=== PATIENT | female | born 1995 | race Caucasian/White ===

== ENCOUNTER 2017-11-14 12:17 | Emergency (ER) | payer BC, OTHER ==
[~2017-11-14] VITALS: Ht 172.7 cm; Wt 107.8 kg
[2017-11-14 14:04] LABS: MICROSCOPIC NOT IND
[2017-11-14 14:21] LABS: BASOPHILS # (AUTO) 0.05 x10^3/uL (0-0.1); BASOPHILS % (AUTO) 0 % (0-1); EOSINOPHILS # (AUTO) 0.26 x10^3/uL (0-0.4); EOSINOPHILS % (AUTO) 2 % (1-7); LYMPHOCYTES # (AUTO) 2.37 x10^3/uL (1-3.4); LYMPHOCYTES % (AUTO) 18 % (22-44); MD NO; MEAN CORPUSCULAR HEMOGLOBIN 31.8 pg (27.0-34.8); MEAN CORPUSCULAR HGB CONC 34.8 g/dL (32.4-35.8); MEAN CORPUSCULAR VOLUME 91.2 fL (80-100); MEAN PLATELET VOLUME 8.2 fL (7.4-10.4); MONOCYTES # (AUTO) 0.74 x10^3/uL (0.2-0.8); MONOCYTES % (AUTO) 6 % (2-9); NEUTROPHILS # (AUTO) 9.73 x10^3/uL (1.8-6.8); NEUTROPHILS % (AUTO) 74 % (42-75); PLATELET COUNT 289 x10^3/uL (130-400); RED BLOOD COUNT 4.83 x10^6/uL (3.82-5.3); RED CELL DISTRIBUTION WIDTH 12.6 % (9.6-15.2)
[2017-11-14 14:28] LABS: ALBUMIN 3.5 g/dL (3.4-5.0); ANION GAP 12 mmol/L (5-15); CALCIUM 8.8 mg/dL (8.5-10.1); CHLORIDE 106 mmol/L (98-107); CREATININE 0.83 mg/dL (0.55-1.02)
[2017-11-14 15:42] VITALS: BP 100/62
== END 2017-11-14 16:53 | disposition home or self-care (01) ==
LOC: ED 16:20
DX: O26.891 Other specified pregnancy related conditions, first trimester (principal); R10.9 Unspecified abdominal pain; O00.90 Unspecified ectopic pregnancy without intrauterine pregnancy; Z3A.01 Less than 8 weeks gestation of pregnancy; Z32.01 Encounter for pregnancy test, result positive
CPT/HCPCS: 36415; 76801; 80048; 81003; 82040; 84702; 85025; 86901; 99285

== ENCOUNTER 2018-06-20 04:25 | Inpatient (IN) | payer BC, OTHER ==
[~2018-06-20] VITALS: Ht 172.7 cm; Wt 123.0 kg
[2018-06-20] MEDS ORDERED: OXYTOCIN 30U/ 0.9% NaCL 500ML 500 ML IV ONE (05:27)
[2018-06-20] MEDS ORDERED: D5%-LACTATED RINGERS 1,000 ML IV SCH (05:27)
[2018-06-20] MEDS ORDERED: FENTANYL PF 100 MCG/2ML IVPush PRN (05:30)
[2018-06-20] MEDS ORDERED: PENICILLIN GK 5,000,000 UNITS in DEXTROSE 5% 100 ML IVPB ONE (05:30)
[2018-06-20] MEDS ORDERED: ONDANSETRON 2MG/ML, 2ML IVPush PRN (05:30)
[2018-06-20] MEDS ORDERED: CALCIUM CARBONATE 500 MG TAB.CHEW PO PRN (05:30)
[2018-06-20] MEDS ORDERED: FENTANYL PF 100 MCG/2ML IV PRN (05:30)
[2018-06-20] MEDS ORDERED: OXYTOCIN 30U/ 0.9% NaCL 500ML 500 ML ONE (05:42)
[2018-06-20] MEDS ORDERED: LIDOCAINE/PF 1%, 30ML ONE (05:42)
[2018-06-20] MEDS ORDERED: MISOPROSTOL 200 MCG TABLET ONE (05:42)
[2018-06-20] MEDS ORDERED: NEWBORN KIT ONE (05:42)
[2018-06-20 06:28] LABS: BASOPHILS # (AUTO) 0.05 x10^3/uL (0-0.1); BASOPHILS % (AUTO) 0 % (0-1); EOSINOPHILS % (AUTO) 1 % (1-7); LYMPHOCYTES # (AUTO) 2.89 x10^3/uL (1-3.4); LYMPHOCYTES % (AUTO) 20 % (22-44); MD NO; MEAN CORPUSCULAR HEMOGLOBIN 31.7 pg (27.0-34.8); MEAN CORPUSCULAR HGB CONC 34.9 g/dL (32.4-35.8); MEAN CORPUSCULAR VOLUME 90.9 fL (80-100); MEAN PLATELET VOLUME 8.2 fL (7.4-10.4); MONOCYTES # (AUTO) 1.06 x10^3/uL (0.2-0.8); MONOCYTES % (AUTO) 7 % (2-9); NEUTROPHILS # (AUTO) 10.44 x10^3/uL (1.8-6.8); NEUTROPHILS % (AUTO) 71 % (42-75); PLATELET COUNT 232 x10^3/uL (130-400); RED BLOOD COUNT 4.31 x10^6/uL (3.82-5.3); RED CELL DISTRIBUTION WIDTH 13.8 % (9.6-15.2)
[2018-06-20] MEDS: LACTATED RINGERS 1,000 ML IV SCH ×3 (07:15→13:24)
[2018-06-20] MEDS ORDERED: BETAMETHASONE 6 MG/ML, 5ML IM ONE (07:23)
[2018-06-20] MEDS: BETAMETHASONE 6 MG/ML, 5ML IM SCH (07:25)
[2018-06-20] MEDS ORDERED: FENTANYL/BUPIV./NS/PF 250 ML EPIDCONT SCH (09:07)
[2018-06-20] MEDS ORDERED: FENTANYL PF 100 MCG/2ML ONE ×2 (11:20→13:16)
[2018-06-20] MEDS: PENICILLIN GK 2,500,000 UNITS in DEXTROSE 5% 100 ML IVPB SCH ×4 (11:52→23:10)
[2018-06-20] MEDS ORDERED: BUPIVACAINE 0.25% ONE (13:16)
[2018-06-20] MEDS ORDERED: FENTANYL/BUPIV./NS/PF 250 ML EPIDCONT ONE (13:38)
[2018-06-20] MEDS ORDERED: CALCIUM CARBONATE 500 MG TAB.CHEW ONE (19:15)
[2018-06-21] MEDS ORDERED: OXYTOCIN 30U/ 0.9% NaCL 500ML 500 ML ONE (03:15)
[2018-06-21] MEDS ORDERED: IBUPROFEN 600 MG TABLET ONE (03:30)
[2018-06-21] MEDS: OXYTOCIN 30U/ 0.9% NaCL 500ML 500 ML IV SCH ×2 (04:45→14:45)
[2018-06-21 05:00] VITALS: BP 97/60
[2018-06-21] MEDS ORDERED: DIPH,PERTUSS(ACELL),TET VAC/PF NC IM-VACC PRN (05:00)
[2018-06-21] MEDS ORDERED: METOCLOPRAMIDE 5 MG/ML, 2ML IV PRN (05:00)
[2018-06-21] MEDS ORDERED: DOCUSATE 100 MG CAPSULE PO PRN (05:00)
[2018-06-21] MEDS ORDERED: OXYcodone/APAP 5/325MG TABLET PO PRN (05:00)
[2018-06-21] MEDS ORDERED: METHYLERGONOVINE 0.2 MG/ML IM PRN (05:00)
[2018-06-21] MEDS ORDERED: MAGNESIUM HYDROXIDE 8%, 30ML UDC PO PRN (05:00)
[2018-06-21] MEDS ORDERED: ONDANSETRON 2MG/ML, 2ML IV PRN (05:00)
[2018-06-21] MEDS ORDERED: CALCIUM CARBONATE 500 MG TAB.CHEW PO PRN (05:00)
[2018-06-21] MEDS ORDERED: BISACODYL 10 MG SUPP PR PRN (05:00)
[2018-06-21] MEDS ORDERED: GLYCERIN ADULT SUPP PR PRN (05:00)
[2018-06-21] MEDS ORDERED: MISOPROSTOL 200 MCG TABLET PR PRN ×2 (05:00)
[2018-06-21] MEDS ORDERED: HYDROcodone/APAP 5/325 TABLET PO PRN (05:00)
[2018-06-21] MEDS: BETAMETHASONE 6 MG/ML, 5ML IM SCH (07:00)
[2018-06-21 07:40] VITALS: BP 96/60
[2018-06-21] MEDS: PRENATAL VIT/IRON/FA 1 EACH TABLET PO SCH (09:00)
[2018-06-21 10:52] LABS: MEAN CORPUSCULAR HEMOGLOBIN 30.9 pg (27.0-34.8); MEAN CORPUSCULAR HGB CONC 33.8 g/dL (32.4-35.8); MEAN CORPUSCULAR VOLUME 91.3 fL (80-100); MEAN PLATELET VOLUME 8.3 fL (7.4-10.4); PLATELET COUNT 225 x10^3/uL (130-400); RED BLOOD COUNT 3.56 x10^6/uL (3.82-5.3); RED CELL DISTRIBUTION WIDTH 13.9 % (9.6-15.2)
[2018-06-21 11:04] LABS: MD YES
[2018-06-21 11:06] LABS: BAND#(MANUAL) 1.64 x10^3/uL; BANDS%(MANUAL) 8 % (0-7); BASOS#(MANUAL) 0.21 x10^3/uL (0-0.1); BASOS% (MANUAL) 1 % (0-1); EOS#(MANUAL) 0.41 x10^3/uL (0.0-0.4); EOS% (MANUAL) 2 % (1-7); LYMPH#(MANUAL) 2.67 x10^3/uL (1-3.4); LYMPHS% (MANUAL) 13 % (22-44); MONOS#(MANUAL) 1.23 x10^3/uL (0.3-2.7); MONOS% (MANUAL) 6 % (2-9); SEG#(MANUAL) 14.35 x10^3/uL (1.8-6.8); SEGS% (MANUAL) 70 % (42-75)
[2018-06-21 11:07] LABS: HYPOCHROMIA 1+; POLYCHROMASIA 1+
[2018-06-21 11:08] LABS: <PLATELET ESTIMATE> ADEQUATE; <PLT MORPHOLOGY> NORMAL PLT MORPH
[2018-06-21 12:30] VITALS: BP 102/59
[2018-06-21] MEDS: IBUPROFEN 600 MG TABLET PO PRN (15:34)
[2018-06-21 16:30] VITALS: BP 106/69
[2018-06-21 20:00] VITALS: BP 112/70
[2018-06-22] VITALS: BP 108/68
[2018-06-22] MEDS: OXYTOCIN 30U/ 0.9% NaCL 500ML 500 ML IV SCH (00:45)
[2018-06-22 07:35] VITALS: BP 118/79
[2018-06-22] MEDS: IBUPROFEN 600 MG TABLET PO PRN ×2 (07:53→16:37)
[2018-06-22] MEDS: PRENATAL VIT/IRON/FA 1 EACH TABLET PO SCH ×2 (07:53→08:01)
[2018-06-22] MEDS ORDERED: IBUP100O32 PO (17:35)
[2018-06-22] MEDS ORDERED: IBUP-1222 PO ×2 (17:36→17:37)
== END 2018-06-22 19:29 | disposition home or self-care (01) | DRG 807 ==
LOC: LDOP 04:25 → LDIP 05:41 → 2NW 06-21 04:16
PROVIDERS: ADMIT Obstetrics & Gynecology Gynecology; ATTEND Obstetrics & Gynecology Gynecology
PROC: 10E0XZZ Delivery of Products of Conception, External Approach (ICD-10-PCS; principal; 2018-06-21)
PROC: 0UQMXZZ Repair Vulva, External Approach (ICD-10-PCS; 2018-06-21)
PROC: 0HQ9XZZ Repair Perineum Skin, External Approach (ICD-10-PCS; 2018-06-21)
PROC: 10H07YZ Insertion of Other Device into Products of Conception, Via Natural or Artificial Opening (ICD-10-PCS; 2018-06-21)
PROC: 3E033VJ Introduction of Other Hormone into Peripheral Vein, Percutaneous Approach (ICD-10-PCS; 2018-06-21)
PROC: 3E0R3BZ Introduction of Anesthetic Agent into Spinal Canal, Percutaneous Approach (ICD-10-PCS; 2018-06-21)
PROC: 00HU33Z Insertion of Infusion Device into Spinal Canal, Percutaneous Approach (ICD-10-PCS; 2018-06-21)
DX: O42.013 Preterm premature rupture of membranes, onset of labor within 24 hours of rupture, third trimester (principal); Z37.0 Single live birth; O99.824 Streptococcus B carrier state complicating childbirth; Z3A.36 36 weeks gestation of pregnancy; O70.0 First degree perineal laceration during delivery; O71.82 Other specified trauma to perineum and vulva; Z91.040 Latex allergy status
CPT/HCPCS: 36415; 82803; 85025; 86850; 86900; 89060; G0378; J0702; J2540; J3010; J3490; J2590; J7120; Q0114